=== PATIENT | male | born 1990 | race Hispanic/Latino ===

== ENCOUNTER 2017-12-09 20:57 | Emergency (ER) | payer SELFPAY ==
[~2017-12-09] VITALS: Ht 167.6 cm; Wt 75.0 kg
[~2017-12-09 20:57] MED LIST: CLARITIN-D1 TA1 OR
[2017-12-09] MEDS ORDERED: AUGMENTIN875TAB PO (22:38)
[2017-12-10] VITALS: BP 147/90
== END 2017-12-10 00:03 | disposition home or self-care (01) | DRG 605 ==
LOC: ED 20:57
DX: S71.151A Open bite, right thigh, initial encounter (principal); W54.0XXA Bitten by dog, initial encounter; Y92.830 Public park as the place of occurrence of the external cause

== ENCOUNTER 2017-12-12 09:40 | Emergency (ER) | payer SELFPAY ==
[~2017-12-12] VITALS: Ht 167.6 cm; Wt 77.0 kg
[~2017-12-12 09:40] MED LIST changes: +AUGMENTIN875TAB PO
[2017-12-12 10:40] VITALS: BP 141/77
== END 2017-12-12 10:47 | disposition home or self-care (01) | DRG 951 ==
LOC: ED 09:40
PROC: 3E0234Z Introduction of Serum, Toxoid and Vaccine into Muscle, Percutaneous Approach (ICD-10-PCS; principal; 2017-12-12)
DX: Z23 Encounter for immunization (principal); T14.8XXD Other injury of unspecified body region, subsequent encounter; W54.0XXD Bitten by dog, subsequent encounter